=== PATIENT | female | born 1945 | race Caucasian/White ===

== ENCOUNTER 2019-07-09 17:30 | Emergency (ER) | payer MEDICARE, BC ==
[~2019-07-09] VITALS: Ht 157.5 cm; Wt 90.7 kg
== END 2019-07-09 17:53 | disposition home or self-care (01) ==
LOC: ER 17:30
DX: S60.445D External constriction of left ring finger, subsequent encounter (principal); M79.89 Other specified soft tissue disorders
CPT/HCPCS: 99284

== ENCOUNTER 2019-11-18 01:44 | Emergency (ER) | payer MEDICARE, BC ==
[~2019-11-18] VITALS: Ht 167.6 cm; Wt 81.6 kg
[2019-11-18] MEDS ORDERED: SODIUM CHLORIDE 0.9% 1000 ML BAG IV ONE (01:45)
[2019-11-18] MEDS ORDERED: SODIUM CHLORIDE 0.9% 1000ML 2,000 ML ONE (02:02)
--- NOTE | 2019-11-18 02:09 | NUR ---
at bedside placing central line.
[2019-11-18 02:14] LABS: BASOPHILS # (AUTO) 0.1 (0.0-0.1); BASOPHILS % 0.7 % (0.0-1.0); EOSINOPHILS # (AUTO) 0.2 (0.0-0.4); EOSINOPHILS % 0.9 % (0.0-6.0); HEMATOCRIT 23.8 % (34.2-44.1); LYMPHOCYTES # (AUTO) 5.8 (1.0-3.2); LYMPHOCYTES % 32.6 % (18.0-39.1); MEAN CORPUSCULAR HEMOGLOBIN 25.7 pg (28-32); MEAN CORPUSCULAR HGB CONC 27.7 g/dL (31-35); MEAN CORPUSCULAR VOLUME 92.6 fL (81-99); MONOCYTES # (AUTO) 0.6 (0.2-0.8); MONOCYTES % 3.4 % (4.4-11.3); NEUTROPHILS % 44.9 % (38.7-80.0); PLATELET COUNT 639 x10e3/uL (140-360); RED BLOOD COUNT 2.57 x10e6/uL (3.6-5.1); RED CELL DISTRIBUTION WIDTH 17.2 % (11.7-14.4)
[2019-11-18] MEDS ORDERED: SODIUM CHLORIDE 0.9% 1000ML 1,000 ML IV SCH ×2 (02:15)
[2019-11-18 02:16] LABS: INR 1.63; PROTHROMBIN TIME 20.5 seconds (11.9-14.5)
[2019-11-18 02:17] LABS: PARTIAL THROMBOPLASTIN TIME 50.7 seconds (23.8-35.5)
[2019-11-18 02:34] LABS: HEMOGLOBIN 6.6 g/dL (12.0-16.0)
[2019-11-18 03:06] LABS: CLARITY,URINE CLOUDY (CLEAR); COLOR,URINE YELLOW (YELLOW); LEUKOCYTE ESTERASE ,URINE 1+ (NEGATIVE); NITRITE,URINE NEGATIVE (NEGATIVE); PROTEIN,URINE DIPSTICK >=300 (NEGATIVE)
[2019-11-18 03:07] LABS: BILIRUBIN,URINE NEGATIVE (NEGATIVE); KETONES,URINE NEGATIVE (NEGATIVE); URINE UROBILINOGEN 0.2 mg/dL (0.2 - 1)
[2019-11-18 03:07] LABS: CREATINE KINASE MB 2.4 ng/mL (0-5.0)
[2019-11-18] MEDS ORDERED: LEVOFLOXACIN 500MG/D5W 100ML 100 ML IV STA (03:08)
[2019-11-18] MEDS ORDERED: AZITHROMYCIN 500MG/NS 250 ML 250 ML IV STA (03:08)
[2019-11-18] MEDS ORDERED: VANCOMYCIN 1GM/NS 250 ML 250 ML IV STA (03:08)
[2019-11-18 03:14] LABS: RBC,URINE >50 /HPF (0-5); WBC,URINE (MAN) >50 /HPF (0-5)
[2019-11-18 03:15] LABS: BACTERIA,URINE MANY /HPF; EPITHELIAL CELLS,URINE FEW /LPF; RENAL EPITHELIAL CELLS,URINE MODERATE; TRANSITIONAL EPI CELLS,URINE FEW
[2019-11-18 03:25] LABS: ANION GAP 22.7 mmol/L (8-16); BLOOD UREA NITROGEN 17 mg/dL (7-26); BUN/CREATININE RATIO 26 (6-25); CARBON DIOXIDE 16 mmol/L (22-29); CHLORIDE 104 mmol/L (98-107); CREATININE, SERUM 0.65 mg/dL (0.57-1.11); EST GLOMERULAR FILTRATION RATE > 60 ML/MIN (60-); GLUCOSE 279 mg/dL (74-118); POTASSIUM 5.7 mmol/L (3.5-5.1); SODIUM 137 mmol/L (136-145)
[2019-11-18 03:26] LABS: ALANINE AMINOTRANSFERASE 70 IU/L (0-55); ALBUMIN 1.9 g/dL (3.5-5.0); ALBUMIN/GLOBULIN RATIO 0.4 (0.8-2.0); ALKALINE PHOSPHATASE 205 IU/L (40-150)
--- NOTE | 2019-11-18 03:41 | Diagnostic Imaging Report ---
EXAMINATION: CHEST SINGLE (PORTABLE) INDICATION: Sepsis COMPARISON: None FINDINGS: TUBES and LINES: Tracheostomy tube tip projects in the upper tracheal lumen. LUNGS/PLEURA: Right mid/lower lung haziness and obscured right hemidiaphragm, with right infrahilar air bronchograms.. Left retrocardiac consolidation with obscured medial left hemidiaphragm with air bronchograms. HEART AND MEDIASTINUM: The cardiomediastinal silhouette is partially scattered, borderline enlarged. Aortic calcifications. BONES AND SOFT TISSUES: No acute osseous lesion. Round calcific density in the left breast. UPPER ABDOMEN: No free air under the diaphragm. Surgical clips in the right upper quadrant. IMPRESSION: Findings in the right lower lung are likely due to at least in part to pleural effusion, although atelectasis or pneumonia may contribute to the opacification. Probable left lower lung atelectasis and/or pneumonia. Borderline cardiomegaly. Left breast calcification, recommend dedicated mammographic evaluation. Signed by: Martinez Gaytan DO on 11/18/2019 3:38 AM
--- NOTE | 2019-11-18 05:05 | NUR ---
[facility] here to transport patient to [facility].
[2019-11-18 05:38] VITALS: BP 111/58
--- NOTE | 2019-11-18 06:09 | NUR ---
Attempted to inform next of kin patient had left the facility. Phone number went straight to voicemail.
[2019-11-18 06:35] LABS: ABG BASE EXCESS -15.9 mmol/L (-2 - 3); ABG HCO3 12 mmol/L (21-29); ABG PCO2 37 mmHg (35-45); ABG PH 7.14 (7.35-7.45)
[2019-11-18 06:37] LABS: ABG OXYGEN SATURATION 99.7 % (96-97)
[2019-11-26 10:45] LABS: ABG PO2 372 mmHg (80-90)
== END 2019-11-18 06:00 | disposition other institution (70) ==
LOC: ER 01:44
DX: I46.9 Cardiac arrest, cause unspecified (principal); A41.9 Sepsis, unspecified organism; J96.11 Chronic respiratory failure with hypoxia; J15.9 Unspecified bacterial pneumonia; L89.894 Pressure ulcer of other site, stage 4; E78.5 Hyperlipidemia, unspecified; F41.9 Anxiety disorder, unspecified
CPT/HCPCS: 36415; 36600; 71045; 80053; 81001; 82550; 82553; 82805; 83605; 84484; 85025; 85610; 85730; 87040; 87071; 87086; 87186; 87205; 92950; 93005; 94002; 99285; J0456; J1956; J3370; J7030